=== PATIENT | male | born 2000 | race Caucasian/White ===

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

== ENCOUNTER 2018-03-26 22:19 | Emergency (ER) | payer OTHER ==
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
[2018-03-27 00:19] VITALS: BP 112/78
== END 2018-03-27 00:19 | disposition home or self-care (01) ==
DX: S30.21XA Contusion of penis, initial encounter (principal); X50.9XXA Other and unspecified overexertion or strenuous movements or postures, initial encounter; Y93.89 Activity, other specified; Y99.8 Other external cause status